=== PATIENT | female | born 1985 | race Caucasian/White ===

== ENCOUNTER 2018-05-06 20:19 | Emergency (ER) | payer BC ==
[~2018-05-06] VITALS: Ht 160 cm; Wt 93.0 kg
[2018-05-06] MEDS ORDERED: EFFEXOR XR150 MG PO (20:38)
[2018-05-06 21:21] VITALS: BP 132/78
--- NOTE | 2018-05-07 12:50 | EKG ---
[place] [address] ELECTROCARDIOGRAM REPORT Name: JAIME WILKERSON [facility] [id number] Admission: 05/06/18 Attend Phys: Discharge: 05/06/18 Date of : 89 Report #: [id number] THIS REPORT FOR: //name// [facility] ED Test Date: 2018-05-06 Test Time: 20:25:43 Pat Name: JAIME ROCK Department: Room: Gender: F Driver Medic: LUCERO : 1985 Requested By: Tsahia Otto Order Number: [id number] MD: Neptali Carpenter Measurements Intervals [place] Rate: 92 P: 46 ME: 114 QRS: 58 QRSD: 88 T: 11 QT: 336 QTc: 416 Interpretive Statements Sinus rhythm Borderline short ME interval Baseline wander in lead(s) V6 No previous ECG available for comparison Electronically Signed On 05-07-2018 12:49:52 CDT by Neptali Carpenter [email or web address] <ELECTRONICALLY SIGNED> By: Neptali Carpenter MD, [facility] 05/07/18 1249 24 24 Neptali Carpenter MD, FAC /EPI
== END 2018-05-06 21:39 | disposition home or self-care (01) ==
LOC: M.ERS 20:19
DX: F41.9 Anxiety disorder, unspecified (principal); Z87.891 Personal history of nicotine dependence; Z88.0 Allergy status to penicillin; Z88.1 Allergy status to other antibiotic agents